=== PATIENT | female | born 2000 | race Caucasian/White ===

== ENCOUNTER 2024-02-24 08:37 | Inpatient (IN) | payer OTHER ==
[2024-02-24] MEDS ORDERED: OXYTOCIN 20 UNITS in 0.9% NS 20 UNIT/1,000 ML INFUS.BAG IV ONE ×2 (09:42→12:23)
[2024-02-24] MEDS ORDERED: BISACODYL 10 MG SUPP.RECT RC PRN (10:09)
[2024-02-24] MEDS ORDERED: BENZOCAINE 28 GM HEMORRHOIDAL OINTMENT TP PRN (10:09)
[2024-02-24] MEDS ORDERED: BENZOCAINE 20% 57 GM BOTTLE TP PRN (10:09)
[2024-02-24] MEDS ORDERED: oxyCODONE HCL 5 MG TABLET PO PRN (10:09)
[2024-02-24] MEDS ORDERED: WITCH HAZEL 50% (TUCKS) 40 PAD/JAR PAD TP PRN (10:09)
[2024-02-24] MEDS ORDERED: METHYLERGONOVINE MALEATE 0.2 MG/1 ML AMP IM PRN (10:09)
[2024-02-24] MEDS: IBUPROFEN 600 MG TABLET (FP) PO PRN (10:30)
[2024-02-24 11:08] LABS: BASO % 0.3 % (0-2.0); EOS % 0.4 % (0-4.5); HEMATOCRIT 29.4 % (32.4-45.2); HEMOGLOBIN 10.5 GM/dL (10.7-15.3); MCH 31.4 pg (25.7-33.7); MCHC 35.7 g/dl (32.0-36.0); MEAN CELL VOLUME 87.9 fl (80-96); MEAN PLT VOLUME 8.2 fl (7.5-11.1); MONO % 4.7 % (3.8-10.2); NEUT % 78.6 % (42.8-82.8); PLATELET COUNT 310 10^3/uL (134-434); RBC 3.35 M/mm3 (3.60-5.2); RDW 14.1 % (11.6-15.6); WHITE BLOOD COUNT 10.9 K/mm3 (4.0-10.0)
[2024-02-24 11:23] LABS: POTASSIUM 3.8 mmol/L (3.5-5.1)
[2024-02-24 11:24] LABS: INR 0.96 (0.83-1.09); PROTHROMBIN TIME (PATIENT) 10.9 SEC (9.7-13.0)
[2024-02-24 11:25] LABS: ALBUMIN 2.4 g/dl (3.4-5.0); CALCIUM 7.9 mg/dL (8.5-10.1)
[2024-02-24 11:26] LABS: BLOOD UREA NITROGEN 8.8 mg/dL (7-18)
[2024-02-24 11:27] VITALS: BMI 30.1
[2024-02-24 11:27] LABS: ACTIVATED PTT 24.9 SECONDS (25.2-36.5)
[2024-02-24 11:29] LABS: CREATININE 0.6 mg/dL (0.55-1.3)
[2024-02-24 11:30] LABS: BILIRUBIN,TOTAL 0.3 mg/dL (0.2-1); TOT PROT 5.5 g/dl (6.4-8.2)
[2024-02-24 11:56] LABS: HEPATITIS B SURFACE AG MATERN NON-REACTIVE (NONREACTIVE); SYPHILIS W/ RPR CONF NON-REACTIVE (NONREACTIVE)
[2024-02-24] MEDS ORDERED: ACETAMINOPHEN 325 MG TABLET (FP) ONE (12:23)
[2024-02-24] MEDS: ACETAMINOPHEN 325 MG TABLET (FP) PO PRN (12:25)
[2024-02-24] MEDS: OXYTOCIN 20 UNITS in 0.9% NS 20 UNIT/1,000 ML INFUS.BAG IV SCH (12:45)
[2024-02-24 13:48] LABS: COCAINE, UR NEGATIVE (NEGATIVE); METHADONE, UR NEGATIVE (NEGATIVE); OPIATES, URI NEGATIVE (NEGATIVE); URINE AMPHETAMINES NEGATIVE (NEGATIVE); URINE BARBITURATES NEGATIVE (NEGATIVE); URINE BENZODIAZEPINES NEGATIVE (NEGATIVE)
[2024-02-24 13:49] LABS: PHENCYCLIDINE,URINE NEGATIVE (NEGATIVE)
[2024-02-24] MEDS: SENNOSIDES/DOCUSATE COMBO (SENNA PLUS) TABLET (UD) PO PRN (21:37)
[2024-02-25 07:46] LABS: BASO % 0.3 % (0-2.0); EOS % 1.2 % (0-4.5); HEMATOCRIT 27.2 % (32.4-45.2); HEMOGLOBIN 9.3 GM/dL (10.7-15.3); LYMPH % 36.3 % (8-40); MCH 30.6 pg (25.7-33.7); MCHC 34.2 g/dl (32.0-36.0); MEAN CELL VOLUME 89.3 fl (80-96); MEAN PLT VOLUME 8.4 fl (7.5-11.1); NEUT % 56.2 % (42.8-82.8); PLATELET COUNT 303 10^3/uL (134-434); RBC 3.05 M/mm3 (3.60-5.2); RDW 14.1 % (11.6-15.6); WHITE BLOOD COUNT 11.4 K/mm3 (4.0-10.0)
[2024-02-25 10:13] VITALS: RESP 18
[2024-02-26 09:56] VITALS: BP 113/73; PULSE 99; TEMP 98.3
== END 2024-02-26 12:52 | disposition home or self-care (01) | DRG 560 ==
LOC: JLDR 08:37 → J3W 12:50
PROVIDERS: ADMIT Obstetrics & Gynecology; ATTEND Obstetrics & Gynecology
PROC: 10E0XZZ Delivery of Products of Conception, External Approach (ICD-10-PCS; principal; 2024-02-24)
DX: O90.81 Anemia of the puerperium (principal); D64.9 Anemia, unspecified; Z3A.40 40 weeks gestation of pregnancy; Z37.0 Single live birth
CPT/HCPCS: 36415; 59409; 80053; 80307; 85025; 85610; 85730; 86780; 86803; 86850; 86900; 86901; 87340